=== PATIENT | male | born 2000 | race Caucasian/White ===

== ENCOUNTER 2019-12-01 18:18 | Emergency (ER) | payer SELFPAY ==
[~2019-12-01] VITALS: Ht 170.2 cm; Wt 81.6 kg
[2019-12-01 18:18] VITALS: BP_SYST 162
--- NOTE | 2019-12-01 18:33 | NUR ---
[facility]. Side rails up. Report given to STEFANO Sagastume.
--- NOTE | 2019-12-01 18:41 | NUR ---
ER PA HAWK at bedside examining patient.
--- NOTE | 2019-12-01 18:57 | NUR ---
PATIENT BROUGHT IN COMPLAINING OF SHORTNESS OF BREATH. PATIENT ABLE TO SPEAK FULL SENTENCES. O2 SATURATION AT 100% AT ROOM AIR. PATIENT REPORTS HAVING STRESS AT HOME AND SCHOOL . DENIES ANY PAIN. NO OTHER COMPLAINTS/INJURIES PER PATIENT OR NOTED. WILL CONTINUE TO MONITOR.
--- NOTE | 2019-12-01 19:21 | NUR ---
Report received from RN at bedside via SBAR approach. Pt in bed, no s/s of distress noted. Will continue to monitor.
--- NOTE | 2019-12-01 20:00 | NUR ---
Patient given written and verbal discharge instructions and verbalizes understanding. ER MD discussed with patient the results and treatment provided. Patient in stable condition. ID arm band removed. Patient educated on pain management and to follow up with PMD. Pain Scale 0/10. Opportunity for questions provided and answered. Medication side effect fact sheet provided.
[2019-12-01 20:20] VITALS: BP_SYST 130
== END 2019-12-01 20:20 | disposition home or self-care (01) ==
LOC: SED 18:18
DX: R07.89 Other chest pain (principal)
CPT/HCPCS: 71045; 99283